=== PATIENT | male | born 1990 | race Caucasian/White ===

== ENCOUNTER → 2016-08-21 | Outpatient (CLI) | payer BC ==
--- NOTE | 2016-08-22 06:02 | HKNOTE ---
DATE OF SERVICE: 08/21/2016 MAIN COMPLAINT: 1. Pain in the left groin. 2. Pain in both knees. 3. Pain in "left lower quadrant of my abdomen." The patient's problem started about 9 years ago with the lower quadrant pain. The patient saw [facility] physicians for this problem, including "a hernia specialist, a general surgeon, an orthopedic graciela geon, and a vp sales." A CAT scan of the abdomen obtained on 04/20/2014 at the request of Dr. Andrae Mckoy. The CAT sc an was reported as showing "a constellation of findings which suggest the possibility of underlying chronic inflammatory bowel disease, either chronic nonactive Crohn's colitis or ulcerative colitis w ith chronic nonactive backwash ileitis. Clinical correlation suggested." Also, "hepatic cyst measu ring 5 mm." The patient subsequently saw a vp sales and underwent a colonoscopy. He believes that the colonoscopy was negative. About 4 years ago he started to developed pain in the left groin. He sa w Dr. Andrae Sanchez who ordered an MRI scan of the left hip without gadolinium. The MRI was repor xavier by Dr. Ding "limited evaluation of the left acetabular labrum. No discrete labral tears apprec iated. No paralabral cystic changes identified. The chondral junction appears grossly intact. Foc al smooth recess is seen along the posterior superior labrum from approximately 11 to 12 o'clock pos itions. Some of the appearance is partially visualized in the contralateral right hip. Correlation with MR arthrography may be considered." The patient was seen by several physicians in between. He does not remember their names or specialt ies. On 06/06/2016, the patient had x-rays of the left hip at [facility] ordered by Mary Jane Jeffries M.D. These x-rays were reported as showing "No acute fracture or dislocation, no AVN of the left femoral head. Minimal irregularity of the left acetabular margin with minimal superior spurring. The superior left joint space appears to be mildly narrowed. The left pubic ring is part ially obscured." On 06/10/2016, patient was seen by Dr. Andrae Castañeda (orthopedic surgeon). Dr. Castañeda conclu ded a diagnosis of degenerative joint disease of the left hip. His treatment plan consisted of NSAI Ds, activity modification, and home exercises. The patient also complains of pain in both knees which has been present in the past year or so. The re has not been any history of injury to the knees. The patient does not have any locking, swelling , or instability of either knee. He wonders if the knee problem is "referred from my hip." Despite all the above, patient hikes for 10 miles at a time. He does this 2 or 3 times a week. The patient now comes in to see me for a consultation. I performed a hip replacement on his grandfa ther several years ago. The patient states that he cannot sit. He gets the pain in his left groin when he sits. He has to stand up pretty much all day and gets quite exhausted doing so. If he sits for any prolonged period of time he gets pain in the left groin and he also gets pain in the left groin if he flexes the hip to about 90 degrees. He describes his pain as "severe." His pain is not aggravated by walking, weightbearing, or stair c limbing. As noted above, he walks 10 miles or more several times a week. He states that his groin pain is only aggravated when he is on a hike if he takes "very long strides." He gets pain at rest if he is sitting. He does occasionally get pain at night. He does not have any history of problems with his back. He has no numbness or tingling in his legs. He does not limp. He does not have a shoe lift. He can clip his toenails and tie his shoelaces. SPORTING ACTIVITIES: Hiking. PAST ORTHOPEDIC HISTORY AND PREVIOUS ORTHOPEDIC OPERATIONS: None. PRIOR CORTISONE INTAKE: None. ALCOHOL INTAKE: None. OTHER JOINT PROBLEMS: None. BLOOD TESTS FOR ARTHRITIS: None. PRIOR INJURIES TO HIPS OR KNEES: None. 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 PAST MEDICAL HISTORY: Negative. PAST SURGICAL HISTORY: Surgery for gynecomastia. ALLERGIES: 1. AUGMENTIN. 2. ZITHROMAX. 3. Z-JAYLIN. CURRENT MEDICATIONS: None. FAMILY HISTORY: Father had hip arthritis. Otherwise noncontributory. REVIEW OF SYSTEMS: Entirely negative. HABITS: He does not smoke or drink alcoholic beverages. No abdominal pain. He indicates that his bowels tend to be somewhat soft; otherwise, no change in bowel habits. PHYSICAL EXAMINATION: GENERAL: The patient is a fit and healthy looking 26-year-old male. He is not in any distress. Hi s gait is completely normal. He walks without a walking aid. VITAL SIGNS: Height 5 feet 6-1/2 inches, weight 146 pounds. Blood pressure 115/60, temperature 98. 9. EXAMINATION OF THE LEFT HIP: A full range of motion with no pain in the hip other than on forced fl exion. No tenderness anywhere around the hip. Muscle strength around the left hip is 5/5 throughou t. No muscular atrophy. Sensation intact. Circulation intact. EXAMINATION OF THE RIGHT HIP: A full range of motion without pain. LEFT KNEE: The left knee shows normal alignment. Active and passive extension is 0 degrees. Active and passive flexion is 135 degrees. The medial and lateral collateral ligaments and cruciate ligamen ts are intact. Ev test is negative. There is no effusion, tenderness, scarring, crepitus, or cy sts. The patella tracks normally. There is no tenderness on the articular surface of the patella or in the patellar groove. The Q angle is normal. RIGHT KNEE: The right knee shows normal alignment. Active and passive extension is 0 degrees. Activ e and passive flexion is 135 degrees. The medial and lateral collateral ligaments and cruciate ligam ents are intact. Ev test is negative. There is no effusion, tenderness, scarring, crepitus, or cysts. The patella tracks normally. There is no tenderness on the articular surface of the patella o r in the patellar groove. The Q angle is normal. NEUROLOGIC: Motor examination reveals no muscle deficit in the lower extremities. Deep tendon refle xes in the lower extremities: Right knee jerk plus, left knee jerk plus, right ankle jerk plus, lef t ankle jerk plus. Straight leg raising is negative bilaterally at 80 degrees. Lasegue and RODRIGO bradley ts are negative. IMAGING: Plain x-rays of the pelvis and hip obtained on 06/06/[address] Tara chakraborty showing "no acute fracture or dislocation. No avascular necrosis femoral head, minimally irregula rity of the left acetabular margin with minimal superior spurring. The left hip joint space appears moderately narrowed." A CAT scan of the left hip without gadolinium obtained on 10/02/[address] Hughes as ess entially normal Plain x-rays of the pelvis with a lateral of the left hip obtained today at the [facility] were reviewed. Remarkably these show that there is some degree of narrowing of the hip jany int spaces of both hips. I would estimate that approximately 1/2 to 2/3 of the joint space has been lost. There is subchondral sclerosis. 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 DISCUSSION: A 26-year-old male with a very confusing history that started off with pain in the righ t lower quadrant. Imaging was obtained which suggested that he might have inflammatory bowel diseas e. He has been seen by a vp sales and he has had and he had lower GI endoscopy. No GI ex planation could be found for his pain. The condition is further unusual in that his pain is aggravated by sitting for prolonged periods and he spends most of his stay standing to avoid getting the pain. Most remarkably he is hiking 7 to 1 0 miles at least once and possibly 2 or 3 times a week. When he is hiking, he only gets discomfort in the left groin when he takes very long steps. (Note that on taking very long steps in the office today there is no reproduction of his pain.) His knees are clinically normal. ANESTHETIC TEST: Under sterile conditions, the patient's left hip was injected with 5 mL of 2% lido maria leena. This made absolutely no difference to the discomfort he felt in the groin on forced flexion. He does not have the characteristic symptoms of a torn labrum. His symptoms do suggest that there m ight be an impingement. MANAGEMENT: The patient is being sent for a: 1. Technet[employer] bone scan. 2. An MRI scan of the left hip with gadolinium He will be called with results of these tests. In all likelihood, all else fails, he may need to have an arthroscopic evaluation of his hip. Dictated By: PAOLA KEN/SAM Conf#: [id number] DID#: [id number]
--- NOTE | 2016-08-22 09:41 | RADRPT ---
PROCEDURE: XR pelvis/left hip. CLINICAL INDICATION: Hip pain TECHNIQUE: AP pelvis/lateral left hip view available for review. COMPARISON: None available FINDINGS: The osseous structures are normal in mineralization, architecture and alignment. No fractures are i dentified. No osseous lesions are identified. There is mild narrowing of the superior lateral aspe cts of the right and left hip joints. There is mild bilateral subchondral sclerosis. The soft tiss ues are unremarkable. IMPRESSION: Mild narrowing of the superior lateral aspects of the right and left hip joint Mild bilateral subchondral sclerosis. Query osteoarthrosis RPTAT: HGDB .Armen Duggan MD, Date Time Electronically viewed and signed by .Armen Duggan MD, on 08/22/2016 09:40 .B/
--- NOTE | 2016-08-22 09:42 | RADRPT ---
PROCEDURE: XR bilateral knees. CLINICAL INDICATION: Knee pain TECHNIQUE: AP weightbearing, lateral weightbearing and sunrise views are available for review. COMPARISON: None available FINDINGS: The osseous structures are normal in mineralization, architecture and alignment. No fractures are i dentified. No osseous lesions are identified. The joints are unremarkable. The soft tissues are u nremarkable. IMPRESSION: Unremarkable examination RPTAT: HGDB .Armen Duggan MD, MD Date Time Electronically viewed and signed by .Armen Duggan MD, MD on 08/22/2016 09:41 .B/
== END | disposition home or self-care (01) ==
LOC: HKI 16:12
DX: M25.561 Pain in right knee (principal); M25.552 Pain in left hip; M25.562 Pain in left knee; R10.32 Left lower quadrant pain
CPT/HCPCS: 20610; 73502; 73562; G0463